=== PATIENT | female | born 1960 | race Caucasian/White ===

== ENCOUNTER 2024-08-02 05:01 | Observation (INO) ==
--- NOTE | 2024-07-02 12:53 | PAT Medication Instructions ---
Medication Instructions Date of Service July 02, 2024 Home Medications aspirin 81 mg tablet 81 mg PO QAM hydroxyurea 500 mg capsule 500 mg PO UD levothyroxine 88 mcg tablet 88 mcg PO QAM ASK your prescriber and surgeon hydroxyurea 500 mg capsule 500 mg PO UD Take morning of surgery With a small sip of water, OTHERWISE NOTHING TO EAT OR DRINK AFTER MIDNIGHT: aspirin 81 mg tablet 81 mg PO QAM (unless surgeon directed otherwise) levothyroxine 88 mcg tablet 88 mcg PO QAM Other Notes If you have any questions please call us at [phone] or [phone] or [phone] or [phone]
--- NOTE | 2024-07-10 08:21 | Anesthesiology Consultation ---
Date of Service July 10, 2024 Assessment & Plan (1) Encounter for pre-operative examination: - Infectious disease screening: Per assessment on 07/10/24- No known recent infectious disease contacts or current infectious disease symptoms. - Outpatient joint assessment: Pt currently scheduled for inpatient pathway. If surgeon requests review for outpatient joint pathway, patient is an acceptable candidate for outpatient joint program from anesthesia standpoint pending surgeon's office assessment that patient is motivated, has good support and completes [facility] Day Joint Program preop requirements. Chart Review Chart Review: Acceptable Risk for Surgery and Patient seen in Pre Admission Testing Teaching & Discussion Pre-Anesthesia Teaching/Discussion Notes: Instructed NPO after midnight before surgery,except medications with 15 cc of water. Medication instructions provided according to the PAT guidelines. History Surgery Operation Date: 08/02/24 10:45 Proposed Procedures p Right Total Hip Arthroplasty - Tim Figueroa MD Height/Weight Height: 5 ft 4.75 in Weight: 68.5 kg Allergies Allergy/AdvReac Type Severity Reaction Status Date / Time No Known Allergies Allergy Unverified 06/26/24 15:50 Medications Home Medications Medication Instructions Recorded Confirmed Last Taken aspirin 81 mg tablet 81 mg PO QAM 06/26/24 06/26/24 Unknown hydroxyurea 500 mg capsule 500 mg PO UD 06/26/24 06/26/24 Unknown levothyroxine 88 mcg tablet 88 mcg PO QAM 06/26/24 06/26/24 Unknown Past Medical History Medical History (Updated 07/10/24 @ 08:32 by Becki Benitez) Hypothyroidism MPN (myeloproliferative neoplasm) Oncology monitoring ([facility]) Osteoarthritis Exercise / Class Metabolic Activity II 4-5 Yardwork/Stairs/Walk up hill (one FS: No CP, no SOB) Past Surgical History Surgical History History of colonoscopy History of ovarian cystectomy Right Past Anesthesia History No Hx of Anesthesia Complications and No Family Hx of Anesthesia Complications History of PONV No Hx of PONV and Hx of Motion Sickness Social History Smoking Status: Never smoker Do You Dip or Chew Tobacco: No Hx Alcohol Use: Yes alcohol intake frequency: a few times a month Hx Substance Use: No substance use type: does not use Review of Systems Patient denies chest pain, shortness of breath, dyspnea on exertion, fever, chills, cough, wheezing, palpitations. Physical Exam Vital Signs BP 135/83 P 74 TEMP 98.1 SP02 99%RA RESP 18 Physical Full cervical extension range of motion. Full TMJ range of motion. TMD > 3.5 finger breaths Mallampati Score I Dentition: intact Lungs: clear throughout to auscultation Cardiac: regular rate and rhythm, no murmurs noted Spine: normal Carotid arteries: negative bruit Extremities: no LE edema Lab Results Anesthesia Preop Results Results Anesthesia Widget: PT 11.2 Seconds (9.0-12.0) 07/10/24 PTT 26 Seconds (21-31) 07/10/24 INR 1.0 (0.9-1.1) 07/10/24 Blood Type O Positive 07/10/24 Antibody Screen NEGATIVE 07/10/24 Testing Laboratory Results 07/02/24 WBC 4.06 H/H 14.1/42.3 PLATELETS 279 SODIUM 136 POTASSIUM 3.9 CHLORIDE 105 CO2 29.2 BUN 18.2 CREATININE 0.81 GLUCOSE 65 Electrocardiogram Date: 07/10/24 NSR at 70bpm. "Normal ECG" Chest X-Ray Date: 07/10/24 FINDINGS: Cardiomediastinal and hilar silhouettes are within normal limits. No pneumothorax, pleural effusion or airspace consolidation. Bones appear grossly intact. There is mild levoscoliosis of the mid to lower thoracic spine. IMPRESSION: No acute process.
--- NOTE | 2024-07-27 12:36 | History & Physical Report ---
Date of Service July 27, 2024 Assessment & Plan (1) Osteoarthritis of right hip: 63-year-old female with advanced right hip arthritis. She has failed conservative measures. She would like to proceed with right total hip replacement. Plan: Nixon to take her to the operating room and do a right total hip replacement. The risks Mente this procedure explained to the patient in depth. She understands it. We will use aspirin for DVT prophylaxis. She is planned to be discharged to home using the [facility] home health program. (2) Hypothyroidism: History of Present Illness Chief Complaint: . Persistent right hip pain and discomfort. Primary Care Provider: Chris Hollis DO . The patient is a 63-year-old female who presents for surgical treatment of her right hip. She has about a 3 to 4-year history of increasing right hip pain discomfort described to gotten worse over time. She has been taking care of of a ill family member and just kind of neglecting this. Pains gradual gotten worse. Scribes groin pain and thigh pain. She limps more as the day goes on. Pain has become more intolerable. She did have an intra-articular injection which helped her temporarily. She would like to have her hip fixed. Allergies Allergy/AdvReac Type Severity Reaction Status Date / Time No Known Allergies Allergy Unverified 06/26/24 15:50 Home Medications Medication Instructions Recorded Confirmed Type aspirin 81 mg tablet 81 mg PO QAM 06/26/24 06/26/24 History hydroxyurea 500 mg capsule 500 mg PO UD 06/26/24 06/26/24 History levothyroxine 88 mcg tablet 88 mcg PO QAM 06/26/24 06/26/24 History Past Med/Surg History Problem List (Updated 07/27/24 @ 12:35 by Tim Figueroa MD) Osteoarthritis of right hip Encounter for pre-operative examination Medical History Osteoarthritis Hypothyroidism MPN (myeloproliferative neoplasm) Oncology monitoring ([facility]) Surgical History History of colonoscopy History of ovarian cystectomy Right Social History Smoking Status: Never smoker Second Hand Exposure: No; Do You Dip or Chew Tobacco: No; Tobacco Cessation Education Requested by Patient: No Hx Alcohol Use: Yes Hx Substance Use: No Preferred Language: Georgian [employer] Training [employer] Required: No Beliefs That Will Affect Care: None Current Living Situation: Spouse Other Information That Helps Us Care for You: No Feels Safe at Home: Yes Safety Concerns: Feels Safe At This Time Review of Systems All systems reviewed & are unremarkable except as noted in HPI & below. Physical Exam . Physical examination reveals a pleasant middle-age female. Looks in pretty good health. Examination of the right hip and leg reveal patient ambulates with an antalgic gait. Leg lengths appear pretty equal. She got very stiff hip with internal rotation of -5. Negative straight leg raise. She is neurologically intact. No knee effusion. Normal knee range of motion. Constitutional WD/WN, vitals as above Respiratory normal respiratory effort, lungs clear to auscultation Cardiovascular RRR, no murmur, no edema Gastrointestinal (Abdomen) normal bowel sounds, soft, nontender, no hepatosplenomegaly Results & Data Results & Data Laboratory Results . Diagnostic Findings . X-rays of the hip were reviewed. Shows advanced right hip arthritis. She got complete loss of her superior joint space. She is flattening of the femoral head. PG Care Time/CCT Total # of Minutes Spent Total Time Spent with Patient: Total time spent is greater than 50% in coordination of care (as documented) at patient's floor/unit and/or counseling patient: Coding Level of Care Code None Diagnoses Osteoarthritis of right hip M16.11 Hypothyroidism E03.9
[2024-08-02] MEDS: LR 60ML/HR IV SCH (05:53)
[2024-08-02] MEDS: ACETAMINOPHEN 500 MG TAB PO SCH ×2 (05:54→13:28)
[2024-08-02] MEDS: FAMOTIDINE 20 MG TAB PO SCH (05:54)
[2024-08-02] MEDS: CeleBREX 200 MG CAP PO SCH (05:54)
[2024-08-02] MEDS: METOCLOPRAMIDE HCL 10 MG TABLET PO SCH (05:54)
[2024-08-02] MEDS: LR 500ML BOLUS, THEN 15ML/HR IV SCH (05:55)
[2024-08-02] MEDS ORDERED: BUPIVACAINE 0.5 % 5 MG/1 ML PF 10ML VIAL ONE (06:15)
[2024-08-02] MEDS ORDERED: MIDAZOLAM HCL 1 MG/ML 2ML VIAL ONE (06:38)
[2024-08-02] MEDS ORDERED: fentaNYL citrate PF 100 MCG/2 ML VIAL ONE (06:38)
--- NOTE | 2024-08-02 06:39 | History & Physical Bridge Note ---
Date of Service August 02, 2024 History & Physical Bridge Note I have examined the patient, reviewed the History & Physical and in the interval since the performance of the History & Physical I have noted the following changes of clinical significance: no changes noted
[2024-08-02] MEDS ORDERED: LIDOCAINE 2% 2 ML VIAL/AMP(20MG/ML) INFIL ONE (06:40)
[2024-08-02] MEDS ORDERED: MoRPHine SULFATE PF 1 MG/ML 10 ML AMP/VIAL ONE (06:47)
[2024-08-02] MEDS: TRANEXAMIC ACID 1,000 MG **IV Pre-op IV SCH (06:52)
[2024-08-02] MEDS: ceFAZolin 2000MG 2,000 MG/15 ML SYR IV SCH (06:59)
[2024-08-02] MEDS ORDERED: NALOXONE HCL 0.4 MG/1 ML VIAL/CARP IV PRN ×2 (07:16→10:29)
[2024-08-02] MEDS ORDERED: NALOXONE HCL 0.08 MG in SYRINGE 1.8 ML IV PRN (07:16)
[2024-08-02] MEDS ORDERED: diphenhydrAMINE 50 MG/ML VIAL IV PRN ×2 (07:16)
[2024-08-02] MEDS ORDERED: NALBUPHINE HCL INJ 10 MG/ML AMP IV PRN (07:16)
[2024-08-02] MEDS ORDERED: LORazepam 1 MG TAB PO PRN (07:16)
[2024-08-02] MEDS ORDERED: HYDROmorphone INJ 0.5 MG/0.5 ML SYR IV PRN (07:16)
[2024-08-02] MEDS ORDERED: ePHEDrine sulfate 50 MG/ML AMP IV PRN (07:16)
[2024-08-02] MEDS ORDERED: NALOXONE HCL 1 MG in SODIUM CHLORIDE 0.9% 1,000 ML IV PRN (07:16)
[2024-08-02] MEDS ORDERED: oxyCODONE HCL IR 5 MG TAB (IMMEDIATE RELEASE) PO PRN (07:16)
[2024-08-02] MEDS ORDERED: PHENYLEPHRINE HCL 10 MG/ML VIAL ONE (07:18)
[2024-08-02] MEDS ORDERED: WATER, STERILE FOR INJ 10 ML VIAL ONE (07:18)
[2024-08-02] MEDS: BUPIVACAINE/EPINEPHRINE 0.5% MPF 1:200,000 30 ML VIAL ONE (07:24)
[2024-08-02] MEDS ORDERED: NO NARCOTICS OR SEDATIVES SCH (07:30)
[2024-08-02] MEDS ORDERED: DC INTRASPINAL MORPHINE SCH (07:30)
[2024-08-02] MEDS ORDERED: ONDANSETRON INJ 2 MG/ML 2 ML VIAL ONE (07:35)
[2024-08-02] MEDS ORDERED: PROPOFOL IV EMULSION 10 MG/ML 20 ML VIAL IV ONE ×5 (07:41)
--- NOTE | 2024-08-02 08:33 | Operative Report ---
PG Post Operative Report Pre & Post Diagnosis Operation Date: 08/02/24 07:00 Pre-Op Diagnosis: Right Hip Osteoarthritis Post-Op Diagnosis: Right Hip Osteoarthritis I identified the patient and participated in the time-out.: Yes Procedure Operation Date: 08/02/24 07:00 Actual Procedures p Right Total Hip Arthroplasty(Right) - Tim Figueroa MD Surgeon Tim Figueroa MD Upper Extremity Surgeon Kyle Plasencia PA-C Estimated Blood Loss 200 Findings Consistent with Post-Op Diagnosis Operative findings were advanced right hip DJD. 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 She had pretty significant anterior acetabular osteophyte. Moderate sized medial osteophytes in the acetabulum. Specimens Right femoral head sent for pathology. Anesthesia Type Spinal MAC Complications none Disposition Accompanied Patient To Recovery: No Indications The patient is a 63-year-old female whose had a several year history of increasing right hip pain and discomfort. She failed conservative mechanisms. X-rays show advanced right hip arthritis. She elected proceed with operative treatment. Description of Procedure Operative implants consist of: 1. Biomet G7 size 52 mm acetabular shell. 2. 6.5 cancellous acetabular screws 1 at 35 mm length and 1 of 25 mm length. 3. [place] hole hog handler. 4. Highly cross-linked polyethylene liner with a 52 mm outer diameter and 36 mm inner diameter. 5. DePuy Karaya size 10 KLA femoral stem. 6. +8.5/36 mm ceramic articular ball. The patient was taken to the op room, identified, placed on the operating table in the supine position. All contact areas were appropriately padded. IV antibiotics fibra anesthesia team. A spinal anesthetic and the implement holding area. A Rodriguez catheter was placed in sterile fashion. The patient was then placed in the left lateral cubitus position. An axillary roll was placed. A stool Birkett position was used for positioning. The right hip and leg were then prepped and draped in usual sterile fashion. A posterolateral approach to the right hip was then performed to a curvilinear incision centered over the greater trochanter. Sharp dissection was got through subcutaneous tissue down to level the IT band gluteal fascia. The IT band gluteal fascia was sized longitudinally in line with skin incision. The underlying greater bursa was excised. The piriformis and external rotators were taken off the posterior aspect of the hip along with the posterior capsule as a single layer. The hip was internally rotated and dislocated. A femoral neck osteotomy cut was made with a Final Cut about 12 mm above the lesser trochanter. Femoral head was removed and sent for pathology. The femur was retracted anteriorly. Attention drawn the acetabulum. The acetabular labrum was excised. The pulmonary fat was excised. Sequential reaming the acetabulum was performed again with a size 43 and progressing up to a 51. I then reamed a little bit with a 52 reamer and then placed a 52 mm Biomet G7 acetabular shell in about 40 degrees lateral opening and 20 degrees of anteversion. It was fixed with two 6.5 cancellous acetabular screws. An anterior osteophyte was removed. Trial liner was placed. Attention drawn the femur. The proximal femur was entered with cookie-cutter followed by the canal finder. Then broached beginning the size 8 and progressed up to a 10. I got good fit with a 10. I did not think I could fit the 11 down. We trialed the hip and +5 articular ball the soft tissue tension just seemed a bit lax. Her hip was stable in all positions but it was lax. Therefore we elected to place a +8.5 head. It did seem to. Leg lengths equal. All trial implants were removed. An apex hole hog handler was placed. Highly cross-linked polyethylene liner was placed. A size 10 KLA femoral stem was impacted in position. A +8.5/36 mm ceramic articular ball was placed. Hip was located and once again found to be stable. Attention drawn toward closing. The wound was irrigated coconuts of pulsatile lavage solution. We did inject locally with 60 cc of half percent Marcaine with epinephrine. The posterior capsule and external rotators then repaired through drill holes in the posterior trochanter with #2 Tycron suture. The IT band gluteal fascia was then closed with #1 PDS suture in a running fashion. The subcutaneous tissues were then closed with 2 layers the deep layer #2 Vicryl suture and subcutaneous tissues with 2-0 Dexon suture out in a buried interrupted fashion. The skin was closed with skin rocío. Leg was then cleaned and dried. A Prevena VAC dressing was applied due to the fairly thick soft tissue subcutaneous envelope. The patient was then transferred to the recovery room in stable condition. Patient tolerated the procedure well and there were no complications. Kyle Plasencia, my physician investigative assistant, was present for the entire procedure. His assistance was essential and required for appropriate patient positioning, prepping and draping, surgical exposure, performing the technical details of the operation, placement the implants, closure of the wound, and placement of the sterile bandage. I attest to the content of the Intraoperative Record and any orders documented therein. Any exceptions are noted below.
--- NOTE | 2024-08-02 08:50 | XRay Report ---
XR hip 1V RT w pelvis CLINICAL HISTORY: Postoperative evaluation. COMPARISON: Right hip radiographs March 04, 2024. FINDINGS: Alignment of the total right hip arthroplasty is anatomic. There is no periprosthetic frac ture or unexpected radiopaque foreign body. There are acetabular screws and skin rocío. IMPRESSION: Expected findings following total right hip arthroplasty. ACT 112: Negative or not required by law. Electronically signed by: Juan Francisco Corbin M.D. 08/02/2024 8:49 AM
[2024-08-02] MEDS: MoRPHine SULFATE PF 1 MG/ML 10 ML AMP/VIAL INT SPINAL ONE (09:20)
[2024-08-02] MEDS ORDERED: bisacodyL 10 MG SUPP PR PRN (10:29)
[2024-08-02] MEDS ORDERED: MAGNESIUM HYDROXIDE SUSP 30 ML UDC PO PRN (10:29)
[2024-08-02] MEDS ORDERED: ALUMINUM/MAGNESIUM SUSP 30 ML UDC PO PRN (10:29)
[2024-08-02] MEDS ORDERED: SENNA 8.6 MG TAB PO SCH (10:29)
[2024-08-02] MEDS ORDERED: traMADol HCL 50 MG TABLET PO PRN (10:29)
[2024-08-02] MEDS: LACTATED RINGER'S 1,000 ML IV SCH (11:00)
[2024-08-02] MEDS: ASPIRIN 81 MG ECTAB PO SCH (11:24)
[2024-08-02] MEDS: MULTIVITAMIN TAB PO SCH (11:57)
[2024-08-02] MEDS: DOCUSATE SODIUM 100 MG CAP PO SCH (11:57)
[2024-08-02] MEDS: LEVOTHYROXINE SODIUM 88 MCG TABLET PO SCH (13:28)
[2024-08-02] MEDS: KETOROLAC TROMETHAMINE 15 MG/ML VIAL IV SCH (13:29)
--- NOTE | 2024-08-02 13:56 | Anesthesiology Progress Note ---
Date of Service August 02, 2024 Anesthesia Post Procedure Vital Signs Vital Signs: Temp Pulse Pulse Pulse Resp BP BP 08/02/24 13:23 18 08/02/24 12:27 36.6 C 61 16 113/74 08/02/24 11:32 36.7 C 61 16 110/70 08/02/24 10:25 36.2 C L 59 L 14 103/67 08/02/24 10:05 63 14 105/62 08/02/24 09:50 36.3 C L 63 12 107/63 08/02/24 09:40 62 12 102/61 08/02/24 09:30 62 16 104/61 08/02/24 09:20 62 16 105/65 08/02/24 09:10 60 12 99/61 L 08/02/24 09:00 63 12 111/63 08/02/24 08:50 63 14 110/61 08/02/24 08:40 74 12 109/62 08/02/24 08:30 85 16 103/64 08/02/24 08:20 36.3 C L 92 H 20 102/63 08/02/24 05:26 36.4 C L 70 18 159/87 H Pulse Ox O2 Del Method O2 Flow Rate 08/02/24 13:23 98 08/02/24 12:27 98 Room Air 08/02/24 11:32 98 Room Air 08/02/24 10:25 99 Room Air 08/02/24 10:05 97 Room Air 08/02/24 09:50 97 Room Air 08/02/24 09:40 96 Room Air 08/02/24 09:30 96 Room Air 08/02/24 09:20 96 Room Air 08/02/24 09:10 97 Room Air 08/02/24 09:00 98 Room Air 08/02/24 08:50 97 Room Air 08/02/24 08:40 99 Oxymask 3 08/02/24 08:30 100 Oxymask 4 08/02/24 08:20 100 Oxymask 6 08/02/24 05:26 100 Room Air Transfer of Care Handoff Completed per policy Notes Mental Status: alert / awake / arousable and participated in evaluation Nausea / Vomiting: adequately controlled Pain: adequately controlled Airway Patency, RR, SpO2: stable & adequate BP & HR: stable & adequate Hydration State: stable & adequate Anesthetic Complications: no major complications apparent and Pt Satisfied with anesthetic care
[2024-08-02] MEDS: ceFAZolin 1000MG 1,000 MG/7.5 ML SYR IV SCH (14:33)
[2024-08-02] MEDS: TRANEXAMIC ACID / 0.7% NACL 1,000 MG/100 ML BAG IV SCH (14:34)
[2024-08-02] MEDS: ONDANSETRON INJ 2 MG/ML 2 ML VIAL IV PRN (15:10)
[2024-08-02] MEDS: ASCORBIC ACID 500 MG TAB PO SCH (16:49)
[2024-08-02] MEDS: PROMETHAZINE 6.25 MG/50.25 ML BAG IV PRN (17:14)
[2024-08-02] MEDS: SENNA 8.6 MG TAB PO SCH (21:00)
[2024-08-03 06:19] LABS: Basophils # (auto) 0.03 K/uL (0.00-0.20); Basophils % (auto) 0.6 %; Eosinophils # (auto) 0.05 K/uL (0.00-0.50); Hematocrit (blood only) 31.7 % (37.0-47.0); Hemoglobin 10.9 g/dl (12.0-16.0); Immature Granulocytes # (auto) 0.02 K/uL (0.01-0.20); Immature Granulocytes % (auto) 0.4 %; Lymphocytes % (auto) 11.9 %; Mean Corpuscular Hemoglobin 32.1 pg (25.0-34.0); Mean Corpuscular Hgb Conc 34.4 g/dL (32.0-36.0); Mean Corpuscular Volume 93.2 fL (80.0-100.0); Monocytes # (auto) 0.59 K/uL (0.11-0.59); Monocytes % (auto) 11.7 %; Neutrophils # (auto) 3.77 K/uL (1.40-6.50); Neutrophils % (auto) 74.4 %; Platelet Count 198 K/uL (130-400); RDW Standard Deviation 41.1 fL (36.4-46.3); White Blood Count 5.06 K/ul (4.8-10.8)
[2024-08-03 06:21] LABS: BUN Creatinine Ratio 12.9 (10-20); Calcium 8.9 mg/dl (8.6-10.3); Creatinine Clr Calc Pharmacy 78.5 ml/min; Potassium 3.8 mmol/L (3.5-5.1)
[2024-08-03] MEDS ORDERED: METOCLOPRAMIDE HCL INJ 5 MG/ML 2 ML VIAL IV PRN (07:29)
[2024-08-03] MEDS ORDERED: HYDROmorphone INJ 0.5 MG/0.5 ML SYR IV PRN (07:29)
[2024-08-03] MEDS ORDERED: diphenhydrAMINE Capsule 25 MG CAP PO PRN (07:29)
--- NOTE | 2024-08-03 07:35 | Orthopedic Progress Note ---
Date of Service August 03, 2024 Assessment & Plan (1) Status post right hip replacement: Plan: 63-year-old female postop day 1 from right hip replacement. She is doing pretty well. Pain is controlled. Hips located. She is neurologically intact. Plan: 1. DVT prophylaxis including thigh-high teds, SCDs, begin Eliquis today. 2. PT/OT. Weight-bear as tolerated. Right total hip protocol. 3. Pain control. Doing okay with current pain regimen. 4. Disposition plan to discharge to home with some home health if she does okay in therapy today. Admission and Anticipated Discharge Date Admission Date: August 02, 2024 Subjective 63-year-old female postop day 1 from right hip replacement. She is doing pretty well. Pains controlled.Did not get a lot of sleep. No chest pain or shortness of breath. Not feeling dizzy or lightheaded. Physical Exam Physical Exam: Physical examination was a pleasant middle-age female. Lying bed looks pretty comfortable. Examination of the right hip and leg reveals the Prevena VAC dressing to be in place. Leg lengths are equal. Thigh is soft and supple. She is neurologically intact. As she can dorsiflex and plantarflex her foot appropriately. Respiratory: normal respiratory effort, lungs clear to auscultation Cardiovascular: RRR, no murmur, no edema Gastrointestinal (Abdomen): normal bowel sounds, soft, nontender, no hepatosplenomegaly Results & Data Vital Signs (Past 12 Hours) Vital Signs Temp Pulse Resp BP Pulse Ox O2 Del Method 08/03/24 07:00 36.6 C 80 16 106/67 96 Room Air 08/03/24 06:30 18 96 08/03/24 05:30 18 96 08/03/24 04:30 18 98 08/03/24 03:30 18 97 08/03/24 03:00 37.1 C 78 18 103/61 98 Room Air 08/03/24 02:30 18 97 08/03/24 01:30 18 96 08/03/24 00:30 18 96 08/02/24 23:30 18 97 08/02/24 23:00 36.8 C 73 18 118/73 97 Room Air 08/02/24 22:30 18 95 08/02/24 21:30 18 97 08/02/24 20:30 18 95 Laboratory Results Hemoglobin is 10.9. Hematocrit is 31.7.Electrolytes are stable.
[2024-08-03] MEDS: ONDANSETRON INJ 2 MG/ML 2 ML VIAL IV PRN (08:55)
[2024-08-03] MEDS: dexAMETHasone 10 MG in SYRINGE 0 ML IV SCH (10:09)
[2024-08-03] MEDS: APIXABAN 2.5 MG TAB PO SCH (10:10)
--- NOTE | 2024-08-06 14:17 | Discharge Summary ---
Date of Service August 06, 2024 Admission HPI (Per Admitting) . The patient is a 63-year-old female who presents for surgical treatment of her right hip. She has about a 3 to 4-year history of increasing right hip pain discomfort described to gotten worse over time. She has been taking care of of a ill family member and just kind of neglecting this. Pains gradual gotten worse. Scribes groin pain and thigh pain. She limps more as the day goes on. Pain has become more intolerable. She did have an intra-articular injection which helped her temporarily. She would like to have her hip fixed. Admission Exam (Per Admitting) . Physical examination reveals a pleasant middle-age female. Looks in pretty good health. Examination of the right hip and leg reveal patient ambulates with an antalgic gait. Leg lengths appear pretty equal. She got very stiff hip with internal rotation of -5. Negative straight leg raise. She is neurologically intact. No knee effusion. Normal knee range of motion. Principal Diagnosis Same as "Discharge Diagnosis" noted below under Discharge Instructions. Discharge Data Procedures Performed Operation Date: 08/02/24 07:00 Actual Procedures p Right Total Hip Arthroplasty(Right) - Tim Figueroa MD Hospital Course (1) Status post right hip replacement: This is a 63 year old patient admitted on 08/02/24 and underwent total hip arthroplasty. She tolerated the procedure well and there were no complications. Transferred to the PACU post op and later to the orthopedic floor for further care. She was given ancef for antibiotic prophylaxis. She was also given NATAN stockings, SCDs, and eliquis for DVT prophylaxis. Hemoglobin, hematocrit, and vital signs were monitored during her hospital stay and remained stable. Did not require any blood transfusions. There were no complications during her hospital stay. By post op day #1 the patient was tolerating a regular diet, pain was reasonably controlled with oral pain medicine, and she was participating in physical therapy. On post op day #1 the patient was discharged home and set up with home health care. She was given printed discharge instructions including prescriptions for extra strength tylenol, eliquis, zofran, senokot, and trama dol. Continue hip precautions. Continue physical therapy, weight bearing as tolerated. Continue NATAN stockings. Follow up approximately 2 weeks post op or sooner if there are problems or concerns. Discharge Plan Discharge Items Patient Disposition: Home - Home Health Services Reason For Visit: Right Hip Osteoarthritis Discharge Diagnosis: Right Hip Replacement Activity: Per Instructions section Activity Comment: Follow/Obey hip precautions at all times. Weightbearing: Full weightbearing Weightbearing Comment: Weightbear as tolerated obeying hip precautions at all times. Non-emergency contact: Surgeon Call non-emergency contact if: you have any medication questions Follow-up/Referrals: Chris Hollis, [Primary Care Provider] - Diet: Regular Addtl Attending Provider Instructions: ACTIVITY RECOMMENDATIONS: Diet: * You may resume previous diet. Physical Therapy: * Aggressive physical therapy is not usually needed. You will learn to take care of yourself safely and walk. * Follow the "Hip Precautions Instructions." * In some cases, the social work specialist at the hospital will arrange to have a therapist come to your house for the first couple of weeks to help you learn these skills. * You need to practice on your own or with the help of a family member as needed. * When you learn these skills, most of the therapy can be done on your own. Home Exercise: * You were shown a series of exercises in the hospital. Do these exercises three to four times each day including the exercises you were shown in physical therapy. Walking: * Get up and walk several times each day. For the first four weeks, try not to stand or walk for more than one hour at a time. If you do stand or walk for more than one hour, you will not hurt anything, but your leg will likely swell. * As you feel comfortable, you may change from the walker or crutches to a cane and then to independent walking. MEDICATIONS: New Medicine: * You will likely be taking one or more of these medicines: 1. Tramadol - Take, as directed, when you need it, every six hours to control your pain. 2. Eliquis - Thins your blood to lessen the chance of forming a blood clot. * The most common side effects of pain medicine and iron are nausea and constipation. If nausea or constipation is too much of a problem or if you have any questions about your new medicines or doses, call [facility] at . We will try to help you manage these issues. "VERY IMPORTANT TO READ AND REVIEW" Pain: * The immediate post-operative period after hip replacement surgery is often quite painful. * You are given a prescription for pain medicine. You should take it, as directed, when you need it, especially before physical therapy and before going to bed. Pain that interferes with sleep is very common and can last several months. * You will likely need pain medicine for the first two to four weeks. It will not stop all of the pain. The pain will lessen and as you feel better, you may change to milder pain medicine such as Tylenol. * The most common side effects of pain medicine are nausea and constipation, so don't take more than you need. SPECIAL CARE INSTRUCTIONS: TEDs/Elastic Stockings: * The white elastic stockings help limit swelling and prevent blood clots from forming in your legs. The more you wear them, the more they work. * Wear them for six weeks. Incision Site Care: * Remove dressing postoperative day 7. * After showering, cover rocío with dry gauze and change daily or more frequently if the dressing is getting saturated with drainage. * May completely stop using bandage if wound is dry and no drainage * [place] are removed between 2 and 3 weeks post-op. If your follow-up appointment is made before 2 weeks, please have your appointment re- scheduled. It is too early to remove the rocío. Prevention of Infection: * Take antibiotics one hour before any dental cleaning, dental work, urological procedure, gastrointestinal procedure or any invasive surgery in order to prevent your new joint from getting infected. * You may get the antibiotics from the doctor performing the procedure or you may call our office at before and we will call in a prescription to the pharmacy of your choice. Things to Watch For: * Drainage from the incision site that occurs more than one week after your surgery. * Severely increased leg pain or swelling. * Increased redness at the incision site. * Fever above 102 degrees Fahrenheit. * Unusual chest pain or shortness of breath. * Unusual pain or burning with urination. Call [facility] at with any of the above problems or if you have any questions about your medicines or recovery. FOLLOW UP VISIT: Make an appointment to see your doctor for approximately two weeks after surgery for a progress check and staple removal by calling the office at . Pending Studies at Discharge: No Stand-Alone Forms: [facility], Smoking Cessation Medications and DC Order Prescriptions: Continued tramadol 50 mg tablet 50 - 100 mg PO Q6 PRN (Reason: pain) Qty: 40 0RF Rx Instructions: Take as needed for pain ondansetron 4 mg tablet,disintegrating 4 mg PO Q8 PRN (Reason: nausea) Qty: 20 1RF Rx Instructions: Take as needed for nausea sennosides [Senokot] 8.6 mg tablet 8.6 mg PO BID 14 Days Qty: 28 0RF Rx Instructions: Take two times a day to prevent/treat constipation acetaminophen [Tylenol Extra Strength] 500 mg tablet 1,000 mg PO TID 30 Days Qty: 180 0RF Rx Instructions: Take 3 times per day to lessen pain. Eliquis 2.5 mg tablet 2.5 mg PO BID Qty: 60 2RF Rx Instructions: Take to prevent blood clots. hydroxyurea 500 mg Capsule 500 mg PO UD Rx Instructions: every other day in the evening levothyroxine 88 mcg Tablet 88 mcg PO QAM aspirin 81 mg Tablet 81 mg PO QAM Krames/Other Patient Handouts: DVT Post Op Prevention Admission Data Admit Date/Time: 08/02/24 08:26 Attending Provider: Tim Figueroa Admit Provider: Tim Figueroa Primary Care Provider: Chris Hollis Other Providers: [facility],Home Health Other Interventions: Discharge Summary Assessment (RN) Last Done: 08/03/24 12:01
== END 2024-08-03 13:01 | disposition home health service (06) ==
LOC: ASU 05:01 → 3E 05:01